=== PATIENT | male | born 2000 | race Caucasian/White ===

== ENCOUNTER 2020-04-04 20:56 | Emergency (ER) | payer BC ==
[~2020-04-04] VITALS: Ht 185.4 cm; Wt 65.8 kg
[2020-04-04 21:17] LABS: URINE BILIRUBIN NEGATIVE (Negative); URINE BLOOD NEGATIVE (Negative); URINE CLARITY CLEAR; URINE COLOR YELLOW; URINE GLUCOSE-RANDOM NEGATIVE (Negative); URINE KETONES NEGATIVE (Negative); URINE LEUKOCYTES-REFLEX NEGATIVE (Negative); URINE NITRITE-REFLEX NEGATIVE (Negative); URINE PROTEIN 1+ (Negative); URINE SPECIFIC GRAVITY >= 1.030 (1.005-1.030); URINE UROBILINOGEN 0.2 E.U./dl (0.2-1.0)
[2020-04-04 21:25] LABS: AMP/METHAMP Negative (Negative); BARBITURATES Negative (Negative); BENZODIAZEPINES Negative (Negative); COCAINE Negative (Negative); METHADONE Negative (Negative); OPIATES Negative (Negative); PCP Negative (Negative); THC Negative (Negative)
[2020-04-04 21:54] LABS: ABSOLUTE LYMPHOCYTES 1.2 thou/uL (0.8-5.3); ABSOLUTE MONOCYTES 0.1 thou/uL (0.0-1.2); BASOPHILS 0.2 %; EOSINOPHILS 0.3 %; HEMATOCRIT 40.6 % (42.0-52.0); LYMPHOCYTES 14.2 %; MCH 28.8 pg (26.0-34.0); MCHC 34.4 g/dL (28.0-37.0); MCV 83.7 fL (80.0-100.0); MONOCYTES 0.8 %; MPV 9.6 fl. (7.2-11.1); NUCLEATED RBCS 0 /100WBC; PLATELET COUNT* 176 thou/uL (150-400); POLYS 84.5 %; RBC 4.85 mil/uL (4.50-6.00); RDW-CV 13.3 % (10.5-14.5); WBC 8.3 thou/uL (4.0-11.0)
[2020-04-04 22:05] LABS: CALCIUM 8.7 mg/dL (8.5-10.1); CREATININE 1.2 mg/dL (0.6-1.3); POTASSIUM 3.3 mmol/L (3.5-5.1)
[2020-04-04 22:09] LABS: ALBUMIN 4.7 g/dL (3.4-5.0); TOTAL BILIRUBIN 0.6 mg/dL (<0.1-1.0); TOTAL PROTEIN 7.7 g/dL (6.4-8.2)
[2020-04-05] MEDS ORDERED: ZOFRAN ODT4 MG PO (00:02)
[2020-04-05 00:20] VITALS: BP 105/54
--- NOTE | 2020-04-05 11:21 | EKG ---
[place] [address] ELECTROCARDIOGRAM REPORT Name: GALESTANLEY Malgorzata Room: [facility]#: [id number] Admission: 04/04/20 Attend Phys: Discharge: 04/05/20 Date of : 89 Date of Service: 04/04/202125 Report #: [id number] THIS REPORT FOR: //name// [facility] ED Test Date: 2020-04-04 Test Time: 21:26:16 Pat Name: STANLEY BEASLEY Department: Room: Gender: Community Mental Health Worker: : 2000 Requested By: Cathie Corona Order Number: [id number] MD: Mo Goodwin Measurements Intervals Downing Rate: 94 P: 66 LA: 139 QRS: 79 QRSD: 113 T: 54 QT: 317 QTc: 397 Interpretive Statements Sinus rhythm Right atrial enlargement Incomplete right bundle branch block ST elevation suggests acute pericarditis No previous ECG available for comparison Electronically Signed On 04-05-2020 11:20:44 CDT by Mo Goodwin [email or web address] <ELECTRONICALLY SIGNED> By: Mo Goodwin MD, [facility] 04/05/20 1120 25 25 Mo Goodwin MD, [facility] /EPI
== END 2020-04-05 00:20 | disposition home or self-care (01) ==
LOC: M.ERS 20:56
PROVIDERS: Nurse Practitioner Family
DX: R11.2 Nausea with vomiting, unspecified (principal); R50.9 Fever, unspecified